=== PATIENT | male | born 1990 | race Two or more races ===

== ENCOUNTER 2019-11-15 17:32 | Emergency (ER) | payer OTHER ==
[2019-11-15 17:52] VITALS: BP 144/91
[2019-11-15] MEDS ORDERED: cephALEXin 250 MG CAPSULE PO STA (18:12)
[2019-11-15] MEDS ORDERED: predniSONE 20 MG TABLET PO STA (18:12)
--- NOTE | 2019-11-15 18:20 | ED Physician Documentation ---
History of Present Illness - Stated complaint Stated Complaint: R GREAT TOE PAIN - Chief complaint Chief Complaint: Ext Problem - History obtained from History obtained from: Patient - History of Present Illness Timing: How many days ago (several) Pain level max: 9 Pain level now: 9 - Additonal information Additional information: 28-year-old male with right great toe pain. Worse with movement, better with rest. Mild swelling. It is over the IP joint of the toe. No fevers. No trauma. Review of Systems Constitutional: denies: Fever, Chills Respiratory: denies: Cough GI: denies: Vomiting Skin: denies: Rash Musculoskeletal: denies: Neck pain, Back pain Neurologic: denies: Headache PD PAST MEDICAL HISTORY - Past Medical History Past Medical History: No - Past Surgical History Past Surgical History: No - Present Medications Home Medications: Ambulatory Orders Medication Instructions Recorded Confirmed Cephalexin [Keflex] 500 mg PO Q6H #28 capsule 11/15/19 Meloxicam [Mobic] 7.5 mg PO BID PRN #20 tablet 11/15/19 Sertraline [Zoloft] 50 mg PO DAILY 11/15/19 11/15/19 predniSONE [Prednisone] 40 mg PO DAILY #10 tablet 11/15/19 - Allergies Allergies/Adverse Reactions: Allergies Allergy/AdvReac Type Severity Reaction Status Date / Time No Known Drug Allergies Allergy Verified 11/15/19 17:52 - Social History Does the pt smoke?: No Smoking Status: Current every day smoker Does the pt have substance abuse?: No - Immunizations Immunizations are current?: Yes PD ED PE NORMAL - Vitals Vital signs reviewed: Yes - General General: Alert and oriented X 3, No acute distress - HEENT HEENT: Moist mucous membranes - Derm Derm: Warm and dry - Extremities Extremities: Other (Tenderness over the IP joint of the right great toe. No deformity. No ecchymosis. There is mild erythema and swelling from the nail fold back to the IP joint. No drainable abscess. No tenderness on the plantar aspect of the toe or foot. Otherwise normal foot exam) - Neuro Neuro: Alert and oriented X 3 - Psych Psych: Normal mood, Normal affect Results - Vitals Vitals: Vital Signs - 24 hr 11/15/19 17:44 Temperature 36.3 C L Heart Rate 104 H Respiratory 20 Rate Blood Pressure 144/91 H O2 Saturation 99 Oxygen O2 Source Room air PD MEDICAL DECISION MAKING - ED course Complexity details: considered differential, d/w patient ED course: Unclear etiology the patient's symptoms, possible cellulitis/paronychia versus gout. No evidence of septic joint. We will place on antibiotics and steroids and see how he progresses. No pain over the MTP joint. Patient counseled regarding signs and symptoms for which I believe and urgent re-evaluation would be necessary. Patient with good understanding of and agreement to plan and is comfortable going home at this time This document was made in part using voice recognition software. While efforts are made to proofread this document, sound alike and grammatical errors may occur. X ray not performed as no trauma occured. Departure - Departure Disposition: Home, Self Care Clinical Impression: Gout Qualifiers: Gout site: unspecified site Gout etiology: unspecified cause Chronicity: unspecified Qualified Code(s): M10.9 - Gout, unspecified Cellulitis Qualifiers: Site of cellulitis: unspecified site Qualified Code(s): L03.90 - Cellulitis, unspecified Condition: Good Instructions: ED Infec Skin Cellulitis, ED Arthritis Gout Follow-Up: your,doctor in 3 days for recheck [Other] Prescriptions: Cephalexin [Keflex] 500 mg PO Q6H #28 capsule Meloxicam [Mobic] 7.5 mg PO BID PRN #20 tablet PRN Reason: Pain predniSONE [Prednisone] 40 mg PO DAILY #10 tablet Comments: The cause of your symptoms is unclear. It may be related to gout or possibly an infection such as a paronychia. We will trial you on antibiotics and steroids and see how this progresses. Return if you worsen. Discharge Date/Time: 11/15/19 18:30
== END 2019-11-15 18:30 | disposition home or self-care (01) ==
LOC: ED 17:32
DX: M10.071 Idiopathic gout, right ankle and foot (principal); L03.031 Cellulitis of right toe
CPT/HCPCS: 99283; 99284; A9270; J7512

== ENCOUNTER 2021-03-11 10:18 | Emergency (ER) | payer OTHER ==
--- NOTE | 2021-03-11 11:17 | ED Physician Documentation ---
PD HPI CHEST PAIN - Stated complaint Stated Complaint: CHEST PX - Chief complaint Chief Complaint: Cardiac - History obtained from History obtained from: Patient - History of Present Illness Pain level max: 3 Pain level now: 2 Quality: Pressure Location: Substernal Radiation: No: Jaw, Neck, Back, Abdominal, Left upper extremity, Right upper extremity Improved by: Nothing. No: Rest Worsened by: No: Exertion, Inspiration, Eating, Movement, Palpation Associated symptoms: No: Shortness of air, Diaphoresis, Nausea, Vomiting, Feeling faint / dizzy, General Weakness, Palpitations, Cough Similar symptoms before: Has not had sx before - Additional information Additional information: Patient a 30-year-old male who presents to the emergency department stating he has had central chest pain since last night. This been ongoing constantly for the last 16 hours. Nothing makes it better or worse. Described as a 2 or 3 out of 10. He states it feels like something is stuck in his esophagus. He is eating and drinking without difficulty. No vomiting. Review of Systems Ten Systems: 10 systems reviewed and negative Constitutional: denies: Fever, Chills GI: denies: Vomiting, Diarrhea Skin: denies: Rash Musculoskeletal: denies: Neck pain, Back pain Neurologic: denies: Headache PD PAST MEDICAL HISTORY - Past Medical History Past Medical History: No - Past Surgical History Past Surgical History: No - Present Medications Home Medications: Ambulatory Orders Medication Instructions Recorded Confirmed Meloxicam [Mobic] 7.5 mg PO BID PRN #20 tablet 11/15/19 Sertraline [Zoloft] 50 mg PO DAILY 11/15/19 11/15/19 cephALEXin [Keflex] 500 mg PO Q6H #28 capsule 11/15/19 predniSONE [Prednisone] 40 mg PO DAILY #10 tablet 11/15/19 - Allergies Allergies/Adverse Reactions: Allergies Allergy/AdvReac Type Severity Reaction Status Date / Time No Known Drug Allergies Allergy Verified 03/11/21 10:26 - Social History Does the pt smoke?: No Smoking Status: Never smoker Does the pt have substance abuse?: No - Immunizations Immunizations are current?: Yes PD ED PE NORMAL - Vitals Vital signs reviewed: Yes - General General: Alert and oriented X 3, No acute distress - HEENT HEENT: PERRL, Moist mucous membranes - Neck Neck: Supple, no meningeal sign - Cardiac Cardiac: RRR, No murmur, Strong equal pulses - Respiratory Respiratory: No respiratory distress, Clear bilaterally - Abdomen Abdomen: Soft, Non tender, Non distended - Derm Derm: Warm and dry - Extremities Extremities: No edema, No calf tenderness / cord - Neuro Neuro: Alert and oriented X 3 - Psych Psych: Normal mood, Normal affect Results - Vitals Vitals: Vital Signs - 24 hr 03/11/21 03/11/21 10:26 11:30 Temperature 36.9 C Heart Rate 82 76 Respiratory 22 27 H Rate Blood Pressure 145/95 H 135/87 H O2 Saturation 99 99 Oxygen O2 Source Room air - EKG (time done) 1026 Rate: Rate (enter#) (77) Rhythm: NSR [place]: Normal Intervals: Normal CO QRS: Normal Ischemia: Normal ST segments - Labs Labs: Laboratory Tests 03/11/21 03/11/21 03/11/21 11:13 11:13 11:13 WBC 6.2 RBC 5.41 Hgb 15.5 Hct 45.3 MCV 83.7 MCH 28.7 MCHC 34.2 RDW 12.1 Plt Count 261 MPV 9.4 Neut # (Auto) 3.6 Lymph # (Auto) 2.0 [place] # (Auto) 0.5 Eos # (Auto) 0.1 Baso # (Auto) 0.0 Absolute Nucleated RBC 0.00 Nucleated RBC % 0.0 Sodium 136 Potassium 3.9 Chloride 102 Carbon Dioxide 26 Anion Gap 8.0 BUN 20 Creatinine 0.9 Estimated GFR (MDRD) 98 Glucose 105 H Calcium 9.0 Total Bilirubin 0.4 AST 20 ALT 31 Alkaline Phosphatase 61 Troponin I High Sens 3.2 Total Protein 7.5 Albumin 4.3 Globulin 3.2 Albumin/Globulin Ratio 1.3 Lipase 29 - Rads (name of study) cxr Radiology: Final report received, EMP read contemporaneously, See rad report (no acute abnormality) PD MEDICAL DECISION MAKING - ED course Complexity details: reviewed results, re-evaluated patient, considered differential (No ST elevation AL, no aortic dissection, no PE, no tension pneum othorax, no aortic aneurysm), d/w patient ED course: Patient with chest pain of unclear etiology. Likely gastrointestinal in nature. Feels better after GI cocktail. We will have him follow-up with his doctor for an endoscopy. Patient is well-appearing, nontoxic. Afebrile. No hypoxia. No respiratory distress. No evidence of infectious etiology. Patient counseled regarding signs and symptoms for which I believe and urgent re- evaluation would be necessary. Patient with good understanding of and agreement to plan and is comfortable going home at this time This document was made in part using voice recognition software. While efforts are made to proofread this document, sound alike and grammatical errors may occur. Departure - Departure Disposition: 01 Home, Self Care Clinical Impression: Chest pain Qualifiers: Chest pain type: unspecified Qualified Code(s): R07.9 - Chest pain, unspecified Condition: Good Instructions: ED Chest Pain Atypical Unkn Cause Follow-Up: YUNIOR AMIN MD [Primary Care Provider] - Comments: The cause of your symptoms is unclear today. Please follow-up with your doctor for further care. Return if you worsen. Your EKG, chest x-ray and laboratory testing are normal. This could be due to inflammation in your esophagus from something such as reflux. Recommend an endoscopy with your doctor. Discharge Date/Time: 03/11/21 12:09
[2021-03-11 11:18] LABS: BASOPHILS % (AUTO) 0.3 %; EOSINOPHILS # (AUTO) 0.1 10^3/uL (0.0-0.7); EOSINOPHILS % (AUTO) 2.1 %; HCT - HEMATOCRIT 45.3 % (42.0-52.0); HGB - HEMOGLOBIN 15.5 g/dL (14.0-18.0); MEAN CORPUSCULAR HEMOGLOBIN 28.7 pg (27.0-31.0); MEAN CORPUSCULAR HGB CONC 34.2 g/dL (32.0-36.0); MEAN CORPUSCULAR VOLUME 83.7 fL (80.0-94.0); MEAN PLATELET VOLUME 9.4 fL (7.4-11.4); MONOCYTES # (AUTO) 0.5 10^3/uL (0.0-1.0); MONOCYTES % (AUTO) 7.9 %; NEUTROPHILS # (AUTO) 3.6 10^3/uL (1.5-6.6); NEUTROPHILS % (AUTO) 57.4 %; PLT - PLATELET COUNT 261 10^3/uL (130-450); RED BLOOD COUNT 5.41 10^6/uL (4.70-6.10); RED CELL DISTRIBUTION WIDTH 12.1 % (12.0-15.0); WHITE BLOOD COUNT 6.2 x10^3/uL (4.8-10.8)
[2021-03-11 11:33] LABS: ALBUMIN 4.3 g/dL (3.2-5.5); ALBUMIN/GLOBULIN RATIO 1.3 (1.0-2.2); BILIRUBIN,TOTAL 0.4 mg/dL (0.2-1.0); CREATININE 0.9 mg/dL (0.6-1.2); POTASSIUM 3.9 mmol/L (3.5-5.0); TOTAL PROTEIN 7.5 g/dL (6.7-8.2)
--- NOTE | 2021-03-11 11:34 | XRAY Report ---
PROCEDURE: Chest 1 View X-Ray INDICATIONS: Chest Pain TECHNIQUE: One view of the chest was acquired. COMPARISON: None FINDINGS: Surgical changes and devices: None. Lungs and pleura: No pleural effusions or pneumothorax. Lungs are clear. Mediastinum: Mediastinal contours appear normal. Heart size is normal. Bones and chest wall: No suspicious bony lesions. Overlying soft tissues appear unremarkable. IMPRESSION: No acute cardiopulmonary disease process. Reviewed by: Erlinda Clemons MD, PhD on 03/11/2021 11:33 AM [facility] Approved by: Erlinda Clemons MD, PhD on 03/11/2021 11:33 AM [facility] Station ID: [id number]
[2021-03-11] MEDS ORDERED: SUCRALFATE 1 GM/10 ML UDC PO STA (11:45)
[2021-03-11] MEDS ORDERED: MAG HYDROX/AL HYDROX/SIMETH 30 ML UDC PO STA (11:45)
[2021-03-11 11:57] VITALS: BP 135/87
== END 2021-03-11 12:09 | disposition home or self-care (01) ==
LOC: ED 10:18
DX: R07.9 Chest pain, unspecified (principal)
CPT/HCPCS: 36415; 71045; 80053; 83690; 84484; 85025; 93005; 99284; A9270